=== PATIENT | male | born 1995 | race Caucasian/White ===

== ENCOUNTER 2021-01-19 07:06 | Emergency (ER) | payer OTHER, MEDICAID, SELFPAY ==
[2021-01-19 07:20] VITALS: BP 151/76; PULSE 77; RESP 16; TEMP 36.9; O2SAT 100; BMI 27.2
[2021-01-19] MEDS: FLUORESCEIN 1 MG STRIP EYE-RIGHT (07:54)
[2021-01-19] MEDS: PROPARACAINE 0.5% OPHTH SOL 2 DROPS EYE-OP (07:54)
--- NOTE | 2021-01-19 07:54 | ED.EYEPROB ---
HPI - Eye Problem General Chief complaint: Eye Problems Stated complaint: left eye pain Time Seen by Provider: 01/19/21 07:24 Source: patient and family Mode of arrival: Ambulatory Limitations: no limitations History of Present Illness HPI Narrative: Patient complains of left eye pain for the past 2 days. Possible irritation from-peroxide chemical at work. Does not recall any direct spray of chemical in his eye. Denies any other injury. Wears glasses. Has not worn contact lenses in 2 years. Complains of eye pain and redness. No discharge. Has blurry vision. Sensitive to light. Left pupil slightly smaller than the right. Left eye pressure 5 on Mil-Pen. Please seen nurse's notes for visual acuity with glasses on. Related Data Previous Rx's Medication Instructions Recorded hydrocodone-acetaminophen 1 tab PO Q6H PRN #7 tab 01/19/21 ibuprofen 600 mg PO Q6H PRN #24 tab 01/19/21 ondansetron 4 mg PO Q8H PRN #10 tab 01/19/21 prednisolone acetate 2 drp EYE-LEFT QID #10 ml 01/19/21 Allergies Allergy/AdvReac Type Severity Reaction Status Date / Time No Known Drug Allergies Allergy Verified 01/19/21 07:20 Review of Systems Review of Systems Narrative: GENERAL: Denies chills, fatigue, malaise, fever, sweats. HEENT: Denies sinus pain, ear pain, sore throat, complains of left eye pain and redness. No discharge RESPIRATORY: Denies dyspnea, cough CARDIOVASCULAR: Denies chest pain, palpitations GASTROINTESTINAL: Denies nausea, vomiting, abdominal pain : Denies dysuria, frequency, hematuria MUSCULOSKELETAL: denies muscle or bony pain SKIN: Denies rash, skin lesions NEUROLOGIC: Denies weakness, numbness ROS Unobtainable: All systems reviewed & are unremarkable except as noted in HPI and below Patient History Social History Smoking Status: Current some day smoker Smoking Status: Current some day smoker tobacco type: cigarettes alcohol intake frequency: holidays/special occasions only Substance Use Type: marijuana Exam Narrative Exam Narrative: GENERAL: in no distress, not toxic not dyspneic HEAD: Normocephalic. EYES: Pupils equal round No scleral icterus. There is injection of the sclera but no discharge. No conjunctivitis. Left pupil slightly smaller than right. Is reactive with direct and indirect light. Slightly photophobic. No papilledema. Proparacaine as well as fluorescein strip used. Wood's lamp as well. And slit-lamp. No foreign body or dendritic lesions. No abrasion. Eyelids upper and lower inverted No foreign body. No Liu sign no rink sign. Mil-Pen used. Pressure at 5 measured twice NEURO: AOx4. SKIN: Warm and dry PSYCH: Not anxious, is cooperative Initial Vital Signs Initial Vital Signs: Vital Signs Temperature 98.4 F 01/19/21 07:20 Pulse Rate 77 01/19/21 07:20 Respiratory Rate 16 01/19/21 07:20 Blood Pressure 151/76 H 01/19/21 07:20 Pulse Oximetry 100 01/19/21 07:20 Course Course Course Narrative: No new issues during course of stay Orders Ordered: Discontinued Medications Hydrocodone Bitart/Acetaminophen (Hydrocodone/Acet 5/325 Tablet) 1 tab PO NOW ONE Stop: 01/19/21 08:23 Last Admin: 01/19/21 08:30 Dose: 1 tab Documented by: CLARA Fluorescein Sodium (Fluorescein 1 Mg Strip) 1 mg EYE-RIGHT NOW ONE Stop: 01/19/21 07:39 Last Admin: 01/19/21 07:54 Dose: 1 mg Documented by: CLARA Ondansetron HCl (Ondansetron 4 Mg Odt) 4 mg SL NOW ONE Stop: 01/19/21 08:23 Last Admin: 01/19/21 08:30 Dose: 4 mg Documented by: CLARA Proparacaine HCl (Proparacaine 0.5% Ophth [place]) 2 drops EYE-OP NOW ONE Stop: 01/19/21 07:39 Last Admin: 01/19/21 07:54 Dose: 2 drop Documented by: CLARA Reevaluation(s) Reevaluation #1: Reviewed with patient discussion with business unit leader at follow-up and plan. Patient and agree. Time: 08:22 Consultations Consultation #1: Spoke with [facility] Dr. Saab. At this time likely not eye iritis. Likely anterior uveitis. Treat with Pred Forte 5 days. He will see patient in the office this upcoming Thursday. Time: 08:15 Vital Signs Vital signs: Vital Signs - 8 hr 01/19/21 07:20 01/19/21 08:30 Temperature 98.4 F Pulse Rate 77 75 Respiratory Rate 16 18 Blood Pressure 151/76 H 150/70 H Pulse Oximetry 100 99 MDM - Eye Problem Differential Diagnosis Differential diagnosis: Likely corneal abrasion, conjunctivitis, acute iritis and other (Anterior uveitis. Scleritis) MDM Narrative Medical decision making narrative: Appropriate for discharge home. Exam reassuring. Reviewed with business unit leader. Dr. Saab feels this is anterior uveitis. Treat with Pred Forte. He will see patient on Thursday as Thursday is a holiday. Phone number given to patient Discharge Plan Departure Patient Disposition: Home Clinical Impression: Acute anterior uveitis Instructions: DI for Anterior Uveitis Activity Restrictions/Additional Instructions: Call Dr. Saab, Ophthalmology his office is in [place]. Phone number is [phone]. Call on Thursday. Inform office he is expecting to see you in the office this Thursday. Return if worse or any questions concerns. Prescriptions have been sent to your pharmacy. Prescriptions: New prednisolone acetate 1 % drops,suspension 2 drp EYE-LEFT QID Qty: 10 RF: 0 hydrocodone-acetaminophen 5-325 mg tablet 1 tab PO Q6H PRN (Reason: pain) Qty: 7 RF: 0 ibuprofen 600 mg tablet 600 mg PO Q6H PRN (Reason: fever or pain) Qty: 24 RF: 0 ondansetron 4 mg tablet,disintegrating 4 mg PO Q8H PRN (Reason: nausea and vomiting) Qty: 10 RF: 0 Referrals: El Saab MD [Physician] -
[2021-01-19] MEDS: FLUORESCEIN 1 MG STRIP (07:55)
[2021-01-19 08:30] VITALS: BP 150/70; PULSE 75; RESP 18; O2SAT 99
[2021-01-19] MEDS: ONDANSETRON 4 MG ODT SL (08:30)
[2021-01-19] MEDS: HYDROCODONE/ACET 5/325 TABLET 1 TAB PO (08:30)
== END 2021-01-19 08:35 | disposition home or self-care (01) ==
PROVIDERS: Emergency Provider Emergency Medicine
DX: H20.00 Unspecified acute and subacute iridocyclitis (principal)
CPT/HCPCS: 99283

== ENCOUNTER 2023-01-29 15:19 | Emergency (ER) | payer OTHER, MEDICAID, SELFPAY ==
[2023-01-29 15:29] VITALS: BP 137/81; PULSE 54; RESP 18; TEMP 36.4; O2SAT 98; BMI 26.1
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
[2023-01-29] MEDS: KETOROLAC 30 MG/ML VIAL IM (15:51)
[2023-01-29] MEDS: predniSONE 20 MG TABLET PO (15:54)
[2023-01-29] MEDS: methocarbamoL 500 MG TABLET PO (15:54)
[2023-01-29] MEDS: LIDOCAINE PATCH 1 EACH ADH..PATCH TOP (15:54)
[2023-01-29 16:05] VITALS: BP 132/78; PULSE 56; RESP 18; O2SAT 97
== END 2023-01-29 16:06 | disposition home or self-care (01) ==
PROVIDERS: Emergency Provider Nurse Practitioner Critical Care Medicine; PCP Family Medicine
DX: S63.616A Unspecified sprain of right little finger, initial encounter (principal); S29.012A Strain of muscle and tendon of back wall of thorax, initial encounter; M54.16 Radiculopathy, lumbar region; V89.2XXA Person injured in unspecified motor-vehicle accident, traffic, initial encounter
CPT/HCPCS: 96372; 99283; J1885

== ENCOUNTER → 2023-02-11 16:42 | Outpatient (CLI) | payer OTHER, MEDICAID, SELFPAY ==
[2023-02-11 19:01] LABS: Appearance Urine UA CLEAR; Bilirubin Urine UA NEGATIVE (NEGATIVE); Color Urine UA YELLOW; Glucose Urine UA NEGATIVE (Negative); Ketones Urine UA NEGATIVE (NEGATIVE); Leukocyte Esterase Urine UA NEGATIVE (NEGATIVE); Nitrite Urine UA NEGATIVE (Negative); Occult Blood Urine UA NEGATIVE (Negative); Protein Urine UA NEGATIVE (Negative)
[2023-02-11 19:32] LABS: Bacteria Urine None Seen; Culture Indicated Urine Cult Not Indicated; RBC Urine None Seen (0-5/HPF); Squamous Epithelial Cell Urine 0-1 /HPF (0-5/HPF); WBC Urine 0-1/HPF (0-5/HPF)
== END ==
PROVIDERS: PCP Family Medicine; Visit Provider Family Medicine
DX: R35.0 Frequency of micturition (principal)
CPT/HCPCS: 81001

== ENCOUNTER → 2023-07-08 14:35 | Day surgery (SDC) | payer OTHER, MEDICAID, SELFPAY ==
--- NOTE | 2023-07-08 | PATH_ITS ---
[facility] Accession Number: [id number] No. of containers..08 Tissue . 01 Material submitted: . PART A: duodenum - DUODENUM PART B: gastrointestinal site - ANTRUM PART C: small bowel - TERMINAL ILEUM PART D: colon - ASCENDING COLON PART E: colon - TRANSVERSE COLON BIOPSY PART F: colon - DESCENDING COLON PART G: colon - SIGMOID COLON PART H: rectum - RECTUM . 01 Diagnosis: A. DUODENUM, BIOPSY: - SMALL BOWEL MUCOSA WITH PRESERVED VILLOUS ARCHITECTURE, NEGATIVE FOR HISTOLOGIC EVIDENCE OF CELIAC DISEASE. - NEGATIVE FOR DYSPLASIA OR MALIGNANCY. -- B. STOMACH, ANTRUM, BIOPSY: - ANTRAL AND OXYNTIC GASTRIC MUCOSA WITH MILD FOCAL CHRONIC GASTRITIS. - NO H. PYLORI LIKE ORGANISMS IDENTIFIED (ON THE H/E-STAINED SECTIONS). - NEGATIVE FOR GASTRITIS, INTESTINAL METAPLASIA, DYSPLASIA OR MALIGNANCY. -- C. TERMINAL ILEUM, BIOPSY: - BENIGN SMALL INTESTINAL MUCOSA WITH BENIGN REACTIVE LYMPHOID AGGREGATES. - NEGATIVE FOR ACTIVE, OR CRHONIC ILEITIS. - NEGATIVE FOR GRANULOMA, DYSPLASIA, OR MALIGNANCY. -- D. COLON, ASCENDING, BIOPSY: - BENIGN COLONIC MUCOSA, WITH BENIGN REACTIVE LYMPHOID AGGREGATE, NEGATIVE FOR MICROSCOPIC COLITIS. - NEGATIVE FOR ACTIVE OR CHRONIC COLITIS. -- E. COLON, TRANSVERSE, BIOPSY: - BENIGN COLONIC MUCOSA, NEGATIVE FOR MICROSCOPIC COLITIS. - NEGATIVE FOR ACTIVE OR CHRONIC COLITIS. -- F. COLON, DESCENDING, BIOPSY: - BENIGN COLONIC MUCOSA, WITH BENIGN REACTIVE LYMPHOID AGGREGATE, NEGATIVE FOR MICROSCOPIC COLITIS. - NEGATIVE FOR ACTIVE OR CHRONIC COLITIS. -- G. COLON, SIGMOID, BIOPSY: - BENIGN COLONIC MUCOSA, WITH BENIGN REACTIVE LYMPHOID AGGREGATE, NEGATIVE FOR MICROSCOPIC COLITIS. - NEGATIVE FOR ACTIVE OR CHRONIC COLITIS. -- H. COLON, RECTUM, BIOPSY: - BENIGN COLONIC MUCOSA, NEGATIVE FOR MICROSCOPIC COLITIS. - NEGATIVE FOR ACTIVE OR CHRONIC COLITIS. MON 07/20/[address] [place] [address] . 01 Electronically signed: . Tawfeq MD Rosemarie, Pathologist NPI- [id number] . 01 Gross description: . Part A: DUODENUM: Received in formalin are 2 fragment(s) of peguero, soft tissue measuring 0.2 x 0.2 x 0.2 cm to 0.3 x 0.3 x 0.3 cm submitted entirely in 1 cassette(s) Part B: ANTRUM: Received in formalin are 4 fragment(s) of peguero, soft tissue measuring 0.1 x 0.1 x 0.1 cm to 0.4 x 0.3 x 0.2 cm submitted entirely in 1 cassette(s) Part C: TERMINAL ILEUM: Received in formalin are multiple fragment(s) of peguero, soft tissue measuring 0.1 x 0.1 x 0.1 cm to 0.3 x 0.3 x 0.3 cm submitted entirely in 1 cassette(s) Part D: ASCENDING COLON: Received in formalin is 1 fragment(s) of peguero, soft tissue measuring 0.74 x 0.2 x 0.1 cm submitted entirely in 1 cassette(s) Part E: TRANSVERSE COLON BIOPSY: Received in formalin are 2 fragment(s) of peguero, soft tissue measuring 0.1 x 0.1 x 0.1 cm to 0.8 x 0.2 x 0.2 cm submitted entirely in 1 cassette(s) Part F: DESCENDING COLON: Received in formalin are 2 fragment(s) of peguero, soft tissue measuring 0.2 x 0.2 x 0.2 cm to 0.3 x 0.3 x 0.2 cm submitted entirely in 1 cassette(s) Part G: SIGMOID COLON: Received in formalin are 2 fragment(s) of peguero, soft tissue measuring 0.5 x 0.3 x 0.2 cm to 0.6 x 0.3 x 0.2 cm submitted entirely in 1 cassette(s) Part H: RECTUM: Received in formalin are 2 fragment(s) of peguero, soft tissue measuring 0.3 x 0.2 x 0.2 cm to 0.5 x 0.2 x 0.1 cm submitted entirely in 1 cassette(s) /AIME 07/09/2023 2251 Local . 01 Pathologist provided ICD-10: K60.2, K62.5 . 01 CPT . 214472, 683679, 337000, 053586, 589352, [id number], [id number], [id number] Specimen Comment: A courtesy copy of this report has been sent to [phone] Performed at: 01 [facility] [address] [place] [address], [place], [place] [id number] MD Jimmy Grier MD Phone: [phone]
[2023-07-08 14:57] VITALS: BP 142/81; PULSE 74; RESP 16; TEMP 36.7; O2SAT 100; BMI 27.8
[2023-07-08 15:12] VITALS: BMI 27.8
[2023-07-08] MEDS: LACTATED RINGERS 1,000 ML 100 ML IV (15:13)
--- NOTE | 2023-07-08 15:44 | P.HP_ITS ---
History of Present Illness History of Present Illness Chief complaint: EGD & Colonoscopy w/poss bx's Narrative: Allan is here for his EGD and colonoscopy. Please see the office note from last month for details. No changes since then. ON LICENSE OF [facility] Medical History (Updated 04/01/23 @ 14:45 by Bruce Mccormack DO) Sacral region somatic dysfunction Pelvic somatic dysfunction Somatic dysfunction of lower extremity Acute right ankle pain Upper extremity somatic dysfunction Increased urinary frequency Bleeding hemorrhoids Low back pain Acute anterior uveitis Excessive daytime sleepiness Social History household members: spouse Smoking Status: Current some day smoker alcohol intake: current substance use type: marijuana Meds Home Medications and Allergies Home Medications Medication Instructions Recorded Confirmed Type adalimumab 40 mg/0.4 mL 40 mg SUBCUT Q2W 07/08/23 07/08/23 History subcutaneous pen kit (Humira(CF) Pen) meloxicam 15 mg tablet 15 mg PO DAILY 07/08/23 07/08/23 History Allergies Allergy/AdvReac Type Severity Reaction Status Date / Time No Known Drug Allergies Allergy Verified 07/08/23 14:51 Exam Vital Signs (past 8 hours): - 07/08/23 14:57 Temperature 98.0 F Pulse Rate 74 Respiratory Rate 16 Blood Pressure 142/81 H Pulse Oximetry 100 Oxygen Delivery Method Room Air Oxygen Delivery Method Room Air Const General: healthy appearing Assessment & Plan Assessment and plan (1) Fissure in ano: Status: Acute Plan We reviewed the risks and benefits of EGD and colonoscopy and he would like to proceed.
--- NOTE | 2023-07-08 16:42 | SUR.OPER ---
Patients cell phone and headphones placed in patients belongings bag. Patients glasses with patient to ENDo Suite then to PACU. Placed in black glass case with patient ID label.
--- NOTE | 2023-07-08 16:55 | PM.OP.COLON ---
Operative Date/Time/Diagnoses Date of procedure: 07/08/23 Time of procedure: 16:55 Pre-op diagnosis: Rectal bleeding Post-op diagnosis: same Procedure & Clinicians Study performed: Colonoscopy Same procedure as scheduled: Yes Surgeon: Leonardo Matthews Procedure Notes Procedure in detail: Surgeon: Leonardo Matthews MD Anesthesia: Francheska Chiu DO Procedure in detail: A timeout was performed. A bite blocked was placed and monitors were attached to the patient. The patient was positioned in the left lateral decubitus position. Sedation was administered. Once the patient was sedated the endoscope was inserted through the bite block and passed through the esophagus and stomach and into the duodenum. No abnormalities were found. Random biopsies were taken from the duodenal. We then withdrew the scope into the stomach. No abnormalities were seen. Random biopsies were taken from the antrum. The endoscope was retroflexed and no other abnormalities were seen. The endoscope was straightned and withdrawn into the esophagus. No abnormalities were seen in the esophagus. Findings: Normal EGD Procedure: The patient was brought to the endoscopy suite, placed in left lateral decubitus position. The patient was connected to monitoring devices. A time-out was performed. Sedation was administered. Once the patient was adequately sedated, a digital rectal exam was performed and was normal. The scope was then inserted and advanced to the cecum where the appendiceal orifice was identified and photographed. The terminal ileum was intubated and no abnormalities were seen other than prominent Peyer's patches. Random biopsies were taken from the terminal ileum. The scope was then slowly withdrawn over greater than 6 minutes. The mucosa was thoroughly inspected. No abnormalities were found. Random biopsies were taken from the ascending colon, transverse colon, descending colon, sigmoid colon and rectum. The scope was retroflexed in the rectum. No other abnormalities were seen. The scope was straightened and removed. The patient was awakened and brought to recovery. Findings: Normal colon EBL: 5 mL Scope withdrawal time: 6 minutes Sedation minutes: 20 minutes Post-procedure Disposition: PACU
[2023-07-08 16:56] VITALS: BP 121/77; PULSE 70; RESP 16; TEMP 36.8; O2SAT 97
[2023-07-08 17:01] VITALS: BP 112/72; PULSE 54; RESP 14; O2SAT 99
[2023-07-08 17:06] VITALS: BP 110/68; PULSE 79; RESP 12; O2SAT 99
[2023-07-08 17:13] VITALS: BP 131/67; PULSE 59; RESP 16; TEMP 36.2; O2SAT 100
== END | disposition home or self-care (01) ==
PROVIDERS: PCP Family Medicine; Referring Provider Surgery; Visit Provider Surgery
PROC: 0DJ08ZZ Inspection of Upper Intestinal Tract, Via Natural or Artificial Opening Endoscopic (ICD-10-PCS; CPT 43235; principal; 2023-07-08 15:45)
PROC: 0DJD8ZZ Inspection of Lower Intestinal Tract, Via Natural or Artificial Opening Endoscopic (ICD-10-PCS; CPT 45378; 2023-07-08 15:45)
DX: K62.5 Hemorrhage of anus and rectum (principal); K29.50 Unspecified chronic gastritis without bleeding
CPT/HCPCS: 45380; 43239; J2704

== ENCOUNTER 2023-07-21 06:52 | Day surgery (SDC) | payer OTHER, MEDICAID, SELFPAY ==
[2023-07-20 10:58] VITALS: BMI 26.2
[2023-07-21] VITALS (8 sets, daily range): BP systolic 86–139; BP diastolic 52–83; PULSE 56–67; RESP 12–18; TEMP 36.1–36.2; O2SAT 96–99; BMI 26.2
[2023-07-21] MEDS: LACTATED RINGERS 1,000 ML 42 ML IV (07:23)
--- NOTE | 2023-07-21 07:43 | PM.PREOP ---
Pre-operative Note COVID-19 COVID-19 status: Not tested Interval Note History & Physical reviewed/Exam performed by Physician: Yes Changes to H&P: No ASA Class (for procedural sedation): II
[2023-07-21] MEDS: ONABOTULINUMTOXINA 100 UNIT VIAL INJ (08:10)
--- NOTE | 2023-07-21 08:19 | PM.OP.1 ---
Operative Date/Time/Diagnoses Date of procedure: 07/21/23 Time of procedure: 08:19 Pre-op diagnosis: Anal fissure Post-op diagnosis: same Procedure & Clinicians Procedure: Examination under anesthesia and Botox injection Same procedure as scheduled: Yes Surgeon: Leonardo Matthews Anesthesia Type: General Operative Notes Procedure in detail: The patient is a 28-year-old man presented with rectal pain and bleeding was presumed to an anal fissure. Topical diltiazem was administered but continued to symptoms. He was consented for an examination under anesthesia Botox injection. The patient was brought to the operating room and placed on the table in the supine position. General anesthesia was induced via LMA. The perineum was prepped and draped in the usual fashion and a time-out was performed. External inspection demonstrated a small anal fissure in the posterior midline. A well lubricated finger was inserted through the anal sphincter and the sphincter tone was noted to be elevated. Gradually 2 fingers were able to be inserted as the sphincter muscle relaxed. The Hill-Mchugh retractor was inserted and the distal rectum was inspected. No other fissures or abnormalities were found. We then injected a total of 75 units of Botox into the sphincter muscle, roughly 37.5 on each side. We took 1 final look in the rectum using the Hill-Mchugh retractor. We then cleaned the Betadine off the skin and placed some 4x4s over the anus followed by a disposable mesh undergarment. The patient was awakened and brought to recovery room. Findings: Small posterior midline fissure EBL: 5 mL Post-operative Condition: stable Disposition: PACU
--- NOTE | 2023-07-21 09:06 | SUR.OPER ---
Lithotomy on padded OR bed, head on pillow, arms secured on padded arm boards at <90 degrees abduction. Legs secured in padded yellow fins stirrups.
== END 2023-07-21 09:17 | disposition home or self-care (01) ==
PROVIDERS: PCP Family Medicine; Referring Provider Surgery; Visit Provider Surgery
PROC: (CPT 45990; principal; 2023-07-21 07:45)
DX: K60.2 Anal fissure, unspecified (principal)
CPT/HCPCS: 46505; 45990; J0585; J2250; J2704; J3010